=== PATIENT | male | born 1995 | race Caucasian/White ===

== ENCOUNTER 2022-07-15 13:36 | Emergency (ER) | payer MEDICAID, SELFPAY ==
[2022-07-15 13:37] VITALS: BP 118/78; PULSE 127; RESP 18; TEMP 36.6; O2SAT 98; BMI 24.7
--- NOTE | 2022-07-15 13:47 | EX.ED.VIS.PS ---
HPI HPI - Psych History of Present Illness Chief Complaint: Mental Health Detail of Chief Complaint: Delusions of grandeur, paranoia, guarded Informant: police/collar tacker and mental health staff Onset/Context/Timing Onset: - (Unknown) Context: Sudden Onset (Unknown) Conflict: - (Unknown) Timing: - (Presumed continuous) Current Severity: Severe Maximum Severity: Severe Worsened by: - (Unknown) Relieved by: Presumed nothing Associated Symptoms Specific plan (suicidal thought): Patient will not answer Narrative Narrative: Patient is a 26-year-old male who was incarcerated this weekend. Uncertain why he was incarcerated. The mud grinder asked for emergent psychiatric eval because of patient's behavior. Patient is very guarded. When informed that he would need to cooperate and that it is the hospitals policy for him to get undressed and allow the nurses to obtain blood he stated I am health . When he was informed that there is concerned that he is not in a proper state of mind his response was I must be in someone else's mind . 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 He believes that others are not on his side and the reason he is presently here. I was informed by the [place] social media marketing manager that he is hearing voices and words from God who has sent him on the special mission. 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 He is not certain why he is here. Patient was recently admitted to the psychiatric [facility] at [facility]. He is not taking the medicines he was prescribed. He feels that he does not need this. Furthermore he voiced that he feels that his family believes he is crazy . Patient is standing up and will not sit in bed. He informed that he will not cooperate. He was informed that if he does not cooperate security would have to sickly restrain him and he would receive medicine so he would be more cooperative. His response was I am health . Patient was pink slipped by the [employer] social media marketing manager from the counseling center. I am in agreement patient is not oriented to time and not oriented to situation. Prior similar symptoms: Yes Recent Illness/Hospitalization: Yes PFSH PFSH Medical History no medical history unable to obtain Allergy/AdvReac Type Severity Reaction Status Date / Time No Known Allergies Allergy Verified 07/15/22 13:40 Family History unable to obtain unable to obtain Surgical History unable to obtain unable to obtain Social History Smoking Status: Never smoker ROS ROS ED Review of Systems ROS Unobtainable: due to mental condition EXAM Physical Exam Const Vital Signs: 07/15/22 13:37 Temperature 97.8 F Temperature Source Temporal Pulse Rate 127 H Respiratory Rate 18 Blood Pressure 118/78 Blood Pressure Mean 91 Pulse Ox 98 Oxygen Delivery Method Room Air Positive well nourished and well developed Constitutional Narrative: Patient does appear pale. Patient is guarded and not cooperative. He is not violent. General Appearance ED: well developed, NAD and pallor HEENT normocephalic and atraumatic Eyes PERRL and EOMs intact bilaterally General Eye ED: Negative for pale conjunctiva or scleral icterus Neck no lymphadenopathy, supple and no JVD Resp normal respiratory effort Neuro No oriented x3 and CN's II-XII intact bilaterally Neuro Narrative: He moves all extremities. Betty Coma Scale: document GCS findings Spontaneous Obeys Commands Confused 14 Psych Appearance: grossly normal Attitude: paranoid and withdrawn Activity / Motor Behavior: appropriate eye contact and psychomotor agitation Speech: normal speech Mood & Affect: constricted affect Thought Process: disorganized and confused Thought Content: No suicidality, No homicidality, delusion(s) and ideas of reference Attention / Concentration: attention grossly impaired and concentration grossly impaired Insight: poor Judgement: poor Skin General Skin Exam: pallor; Negative for jaundice Lesions: no lesions MDM MDM MDM Narrative Medical decision making narrative: Patient's physical exam is limited because he is guarded and concern he may become agitated and violent. Will medicate with Geodon and reexamine. As previously mentioned patient has been pink slipped. recreation worker is working on placement at psychiatric facility. Will attempt to obtain records from [facility] since he was recently admitted to their psychiatric unit. Appropriate work-up was initiated to evaluate for infectious or metabolic cause. Suspect this is due to underlying psychiatric illness. Lab Data Attestation: I reviewed the patient's lab results. Lab results narrative: CBC is unremarkable. Basic metabolic panel is unremarkable. Alcohol/3. Talk screen is pending. Labs: Laboratory Results - last 24 hr 07/15/22 07/15/22 07/15/22 15:05 15:05 15:05 WBC 6.8 RBC 4.84 Hgb 15.1 Hct 44.4 MCV 91.7 MCH 31.2 MCHC 34.0 RDW Std Deviation 39.5 RDW Coeff of Clara 11.8 Plt Count 279 MPV 10.0 Immature Gran % (Auto) 0.100 Neut % (Auto) 84.1 H Lymph % (Auto) 10.8 L [place] % (Auto) 4.7 Eos % (Auto) 0.0 Baso % (Auto) 0.3 Absolute Neuts (auto) 5.7 Absolute Lymphs (auto) 0.73 L Nucleated RBC % 0 Sodium 138 Potassium 3.7 Chloride 106 Carbon Dioxide 25.0 Anion Gap 7 BUN 13 Creatinine 1.04 Estim Creat Clear Calc 118.14 Est GFR (MDRD) Af Amer 110 Est GFR (MDRD) Non-Af 91 BUN/Creatinine Ratio 12.5 Glucose 100 Calcium 9.2 Ur Drug Screen Comment Ethyl Alcohol < 3.0 07/15/22 15:13 WBC RBC Hgb Hct MCV MCH MCHC RDW Std Deviation RDW Coeff of Clara Plt Count MPV Immature Gran % (Auto) Neut % (Auto) Lymph % (Auto) [place] % (Auto) Eos % (Auto) Baso % (Auto) Absolute Neuts (auto) Absolute Lymphs (auto) Nucleated RBC % Sodium Potassium Chloride Carbon Dioxide Anion Gap BUN Creatinine Estim Creat Clear Calc Est GFR (MDRD) Af Amer Est GFR (MDRD) Non-Af BUN/Creatinine Ratio Glucose Calcium Ur Drug Screen Comment Ethyl Alcohol Treatment and Re-Evaluation Narrative: Was informed the patient wished to talk to me. Patient is much more cooperative. He requested that he be treated with respect and humanity. He did not agree with exactly what was documented on the pink slip. He does recall seeing something about the drug cartel. He is not in total agreement regarding secret mission working for the [employer]. He felt he was misjudged because of his sister's presence in court. He states he was in court because of false accusations. He would not elaborate. He requested food. He was told we will gladly get him something to eat. He was told the plan is that he will be admitted to psychiatric facility for him to get help. He understood. Again his only comment concern is that he be treated humanely and respectfully. In my professional medical opinion patient does not have a metabolic or infectious etiology to explain his presentation and behavior. Patient will need placement to a psychiatric facility for inpatient/emergent stabilization. 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
[2022-07-15] MEDS: Ziprasidone IM 20 MG/ML VIAL IM (14:19)
[2022-07-15 15:15] LABS: Absolute Lymphocyte Count 0.73 X10^3/uL (0.83-4.51); Absolute Neutrophil Count 5.7 X10^3/uL (2.0-7.7); Basophil# 0.02 X10^3/uL; Basophil% 0.3 % (0-1); Hematocrit 44.4 % (40-54); Hemoglobin 15.1 g/dL (13.0-16.5); Lymphocyte # 0.73 X10^3/ul (0.83-4.51); Lymphocyte % 10.8 % (19-41); Mean Corpuscular Hgb 31.2 pg (27.0-32.0); Mean Corpuscular Volume 91.7 fL (80-94); Monocyte# 0.32 X10^3/uL; Monocyte% 4.7 % (0-10); NRBC Flagged by Analyzer 0 % (0-5); Neutrophil # 5.67 X10^3/uL (2.7-7.7); Neutrophil % 84.1 % (47-70); Platelet Count 279 K/mm3 (150-450); RBC Distribution Width CV 11.8 % (11.6-14.6); RBC Distribution Width SD 39.5 fl (35.1-43.9); Red Blood Count 4.84 M/mm3 (4.6-6.2); White Blood Count 6.8 K/mm3 (4.4-11.0)
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
[2022-07-15 15:31] LABS: Alcohol, Blood (Medical)-Serum < 3.0 mg/dL
[2022-07-15 15:32] LABS: Anion Gap 7 (5-15); BUN 13 mg/dL (7-18); BUN/Creat Ratio 12.5 RATIO (10-20); Calcium,Total 9.2 mg/dL (8.5-10.1); Chloride 106 mmol/L (98-107); Creatinine, Serum 1.04 mg/dL (0.70-1.30); EST Glomerular Filtration Rate 91 mL/min (>60); Est Glom Filt Rate - Afr Amer 110 mL/min (>60); Estimated Creatinine Clearance 118.14 ml/min; Glucose 100 mg/dL (74-106); Potassium 3.7 mmol/L (3.5-5.1); Sodium Level 138 mmol/L (136-145)
[2022-07-15 15:48] LABS: Amphetamine Urine VISTA NEGATIVE (<1000 ng/mL); Barbiturate Urine VISTA NEGATIVE (< 200 ng/mL); Benzodiazepine Urine VISTA NEGATIVE (< 200 ng/mL); Cocaine Urine VISTA NEGATIVE (< 300 ng/mL); Ecstacy Urine VISTA NEGATIVE (< 500 ng/mL); Methadone Urine VISTA NEGATIVE (< 300 ng/mL); PCP Urine VISTA NEGATIVE (< 25 ng/mL); THC Urine VISTA NEGATIVE (< 50 ng/mL); Vista UDS pH Range 6
[2022-07-15 16:20] VITALS: RESP 16
--- NOTE | 2022-07-15 17:23 | NURSING ---
NO OLD EKGS
--- NOTE | 2022-07-15 18:12 | CM.ED ---
Addendum entered by Inge Mejia 07/15/22 21:48: SW updated by community leader patient was accepted to [facility]. MD Whitley updated. SW updated patient's sister, Mirta. Plan: [facility] Addendum entered by Inge Mejia 07/15/22 20:05: Rowena with [facility] informed SW referrals have been sent to [facility] and [facility]. [facility] admissions staff contacted to inquire about patient's behavior. Admissions staff explain they need an update regarding patient's behavior once he is awake to help determine what unit patient needs to go to. Patient's referral will be pending until update is given ([phone]). Care team updated. Plan: referrals pending at [facility] and [facility] Original Note: Social Work SW faxed copy of medical records to [facility] for medical clearance towards inpatient psych placement. [facility]
[2022-07-15 18:24] VITALS: RESP 16
[2022-07-15 19:27] VITALS: RESP 16
[2022-07-16 00:38] VITALS: BP 104/72; PULSE 87; RESP 16; O2SAT 99
[2022-07-16 02:15] VITALS: BP 110/65; PULSE 74; RESP 18; O2SAT 100
== END 2022-07-16 02:17 ==
PROVIDERS: Emergency Provider Emergency Medicine; Visit Provider Emergency Medicine
DX: F22 Delusional disorders (principal)
CPT/HCPCS: 80048; 80307; 82077; 85025; 87811; 93005; 96372; 99284; J3486

== ENCOUNTER 2022-07-31 18:19 | Emergency (ER) | payer MEDICAID, SELFPAY ==
[2022-07-31 18:20] VITALS: BP 110/73; PULSE 107; RESP 14; TEMP 35.7; O2SAT 98; BMI 25.7
[2022-07-31 19:14] LABS: Absolute Lymphocyte Count 1.18 X10^3/uL (0.83-4.51); Absolute Neutrophil Count 3.8 X10^3/uL (2.0-7.7); Basophil# 0.04 X10^3/uL; Basophil% 0.7 % (0-1); Eosinophil# 0.06 X10^3/uL; Eosinophils% 1.1 % (0-5); Hematocrit 43.7 % (40-54); Lymphocyte # 1.18 X10^3/ul (0.83-4.51); Lymphocyte % 21.4 % (19-41); Mean Corp Hgb Conc 34.3 g/dL (32-36); Mean Corpuscular Hgb 31.3 pg (27.0-32.0); Mean Corpuscular Volume 91.2 fL (80-94); Mean Platelet Vol. 9.5 fl (6.2-12.0); Monocyte# 0.46 X10^3/uL; Monocyte% 8.3 % (0-10); NRBC Flagged by Analyzer 0 % (0-5); Neutrophil # 3.77 X10^3/uL (2.7-7.7); Neutrophil % 68.3 % (47-70); Platelet Count 285 K/mm3 (150-450); RBC Distribution Width CV 11.9 % (11.6-14.6); RBC Distribution Width SD 39.8 fl (35.1-43.9); Red Blood Count 4.79 M/mm3 (4.6-6.2); White Blood Count 5.5 K/mm3 (4.4-11.0)
[2022-07-31 19:34] LABS: Anion Gap 5 (5-15); BUN 10 mg/dL (7-18); BUN/Creat Ratio 9.5 RATIO (10-20); Calcium,Total 9.7 mg/dL (8.5-10.1); Chloride 107 mmol/L (98-107); Creatinine, Serum 1.05 mg/dL (0.70-1.30); EST Glomerular Filtration Rate 90 mL/min (>60); Est Glom Filt Rate - Afr Amer 109 mL/min (>60); Estimated Creatinine Clearance 117.02 ml/min; Glucose 107 mg/dL (74-106); Potassium 3.7 mmol/L (3.5-5.1); Sodium Level 138 mmol/L (136-145)
[2022-07-31 19:37] LABS: Amphetamine Urine VISTA NEGATIVE (<1000 ng/mL); Barbiturate Urine VISTA NEGATIVE (< 200 ng/mL); Benzodiazepine Urine VISTA NEGATIVE (< 200 ng/mL); Cocaine Urine VISTA NEGATIVE (< 300 ng/mL); Ecstacy Urine VISTA NEGATIVE (< 500 ng/mL); Methadone Urine VISTA NEGATIVE (< 300 ng/mL); PCP Urine VISTA NEGATIVE (< 25 ng/mL); THC Urine VISTA NEGATIVE (< 50 ng/mL); Vista UDS pH Range 6
--- NOTE | 2022-07-31 19:49 | EX.ED.VIS.PS ---
HPI HPI - Psych History of Present Illness Chief Complaint: Mental Health Informant: patient and family Narrative Narrative: History is from the patient and 2 sisters. The patient has a history of schizophrenia. I am not sure if he is actually taking medicines now. He was seen here just couple weeks ago. He was admitted to a facility for 9 days. He has been out for less than a week. He is not doing well. He still has hallucinations. He thinks he works for the [employer] and admits this to me. He evidently has a relationship with Zeinab Pedraza. He states he might have schizophrenia but if he does it is the good kind. He was fired from a job because people there were lying about him. It sounds like he is not suicidal or homicidal but he is not caring for himself and he is getting worse rather than better. Patient was evidently seen by outpatient billiard table repairer who is very concerned with his worsening and brought him in with the family today to make sure he gets care. They contacted the facility that he was discharged from and they may have a bed available to take him back as they were concerned also with his worsening again. PFSH PFS Medical History H/O inguinal hernia Home Medications NK 07/31/22 [History Last Taken Unknown] Allergy/AdvReac Type Severity Reaction Status Date / Time No Known Allergies Allergy Verified 07/31/22 18:20 Surgical History H/O inguinal hernia repair Social History Smoking Status: Light Smoker (<10/day) ROS ROS ED Constitutional Constitutional ED: Denies chills or fever(s) Eyes Eyes: Denies diplopia ENT ENT ED: Denies rhinorrhea Cardiovascular Cardiovascular: Denies chest pain Respiratory/Chest Respiratory/Chest: Denies dyspnea Gastrointestinal Gastrointestinal: Denies abdominal pain, diarrhea, nausea or vomiting Genitourinary Genitourinary ED: Denies dysuria Musculoskeletal Musculoskeletal: Denies myalgias Integumentary Denies rash Neurologic Neurologic: Denies headache(s) Psychiatric Psychiatric: Reports anxiety and other Details: See history of present ; Denies suicidal ideation or suicidal thoughts Hematologic/Lymphatic Hematologic/Lymphatic: Denies easy bleeding or easy bruising Allergic/Immunologic Allergic/Immunologic ED: Denies urticaria EXAM Physical Exam Narrative Exam Narrative: Patient is awake and alert nontoxic. He is pleasant. HEENT shows no sign of trauma. Mucous membranes are moist. Neck is supple Heart is regular I get a heart rate about 90. No murmur gallop or rub. Peripheral pulses are equal. Lungs are clear bilaterally and his oxygen saturation is normal at 98% on room air showing no hypoxia. Abdomen is soft nontender no mass. Extremities show no edema or notable trauma Neurologically he is at his a stable gait clear speech no focal deficit. Psychiatry he makes somewhat poor eye contact. He seems very cautious but it is hard to say if there is a component of paranoia. He admits that he is working for the [employer] at this time. Const Vital Signs: 07/31/22 18:20 07/31/22 21:40 Temperature 96.2 F L Temperature Source Temporal Pulse Rate 107 H 93 Respiratory Rate 14 17 Blood Pressure 110/73 113/77 Blood Pressure Mean 85 89 Pulse Ox 98 93 Oxygen Delivery Method Room Air Room Air MDM MDM MDM Narrative Medical decision making narrative: Patient CBC shows no acute process. Patient's electrolytes are normal. Patient's urine tox screen is negative. Patient's blood ethanol level is only 5. Patient is medically cleared for psychiatric evaluation and admission. Lab Data Attestation: I reviewed the patient's lab results. Labs: Laboratory Results - last 24 hr 07/31/22 07/31/22 07/31/22 18:38 19:05 19:05 WBC 5.5 RBC 4.79 Hgb 15.0 Hct 43.7 MCV 91.2 MCH 31.3 MCHC 34.3 RDW Std Deviation 39.8 RDW Coeff of Clara 11.9 Plt Count 285 MPV 9.5 Immature Gran % (Auto) 0.200 Neut % (Auto) 68.3 Lymph % (Auto) 21.4 [place] % (Auto) 8.3 Eos % (Auto) 1.1 Baso % (Auto) 0.7 Absolute Neuts (auto) 3.8 Absolute Lymphs (auto) 1.18 Nucleated RBC % 0 Sodium 138 Potassium 3.7 Chloride 107 Carbon Dioxide 26.0 Anion Gap 5 BUN 10 Creatinine 1.05 Estim Creat Clear Calc 117.02 Est GFR (MDRD) Af Amer 109 Est GFR (MDRD) Non-Af 90 BUN/Creatinine Ratio 9.5 L Glucose 107 H Calcium 9.7 Urine Opiates Screen NEGATIVE Urine Methadone Screen NEGATIVE Ur Barbiturates Screen NEGATIVE Ur Phencyclidine Scrn NEGATIVE Ur Amphetamines Screen NEGATIVE MDMA (Ecstasy) Screen NEGATIVE U Benzodiazepines Scrn NEGATIVE Urine Cocaine Screen NEGATIVE U Cannabinoids Screen NEGATIVE Ur Drug Screen Comment Ethyl Alcohol 07/31/22 19:05 WBC RBC Hgb Hct MCV MCH MCHC RDW Std Deviation RDW Coeff of Clara Plt Count MPV Immature Gran % (Auto) Neut % (Auto) Lymph % (Auto) [place] % (Auto) Eos % (Auto) Baso % (Auto) Absolute Neuts (auto) Absolute Lymphs (auto) Nucleated RBC % Sodium Potassium Chloride Carbon Dioxide Anion Gap BUN Creatinine Estim Creat Clear Calc Est GFR (MDRD) Af Amer Est GFR (MDRD) Non-Af BUN/Creatinine Ratio Glucose Calcium Urine Opiates Screen Urine Methadone Screen Ur Barbiturates Screen Ur Phencyclidine Scrn Ur Amphetamines Screen MDMA (Ecstasy) Screen U Benzodiazepines Scrn Urine Cocaine Screen U Cannabinoids Screen Ur Drug Screen Comment Ethyl Alcohol 5.0 Discharge Plan Triage Chief Complaint: Mental Health ED Provider: Travis Bai Dx/Rx/DC Orders Clinical Impression: Acute exacerbation of chronic schizophrenia, Acute psychosis Prescriptions: No Action NK Primary Care Provider: Care Physician,No Primary Referrals: Care Physician,No Primary [Primary Care Provider] - Disposition Disposition: Psychiatric Hospital or Unit
--- NOTE | 2022-07-31 20:06 | CM.ED ---
Social Work SW spoke with Keesha from crisis. Patient is referred to [facility] for psych placement per family request. Alyson Hilton ROD TAPE OPERATOR, COUNTER STACKER
[2022-07-31 21:40] VITALS: BP 113/77; PULSE 93; RESP 17; O2SAT 93
--- NOTE | 2022-07-31 23:55 | ED.RN ---
Report given to Brendon Lindsay RN.
== END 2022-08-01 00:41 ==
PROVIDERS: Emergency Provider Emergency Medicine; Visit Provider Emergency Medicine
DX: F23 Brief psychotic disorder (principal); F17.200 Nicotine dependence, unspecified, uncomplicated
CPT/HCPCS: 80048; 80307; 82077; 85025; 99283